=== PATIENT | male | born 1970 | race Caucasian/White ===

== ENCOUNTER 2018-12-13 06:18 | Observation (INO) ==
--- NOTE | 2018-12-02 12:59 | Anesthesiology Consultation ---
Date of Service December 02, 2018 Assessment & Plan (1) Encounter for pre-operative examination: Chart Review Chart Review: Acceptable Risk for Surgery and Patient seen in Pre Admission Testing Teaching & Discussion Pre-Anesthesia Teaching/Discussion Notes: Instructed NPO after midnight before surgery,except medications with 15 cc of water. Medication instructions provided according to the PAT guidelines. History Surgery Operation Date: 12/13/18 07:45 Proposed Procedures p C5-C6 Anterior Cervical Discectomy Fusion, Spinal Cord Monitoring - Palmer Rangel DO Height/Weight Height: 5 ft 3 in Weight: 81.4 kg Allergies Allergy/AdvReac Type Severity Reaction Status Date / Time adhesive Allergy Rash Verified 11/25/18 12:13 Medications Home Medications Medication Instructions Recorded Confirmed Last Taken aspirin [Aspirin Low Dose] 81 mg PO QAM 11/25/18 11/25/18 Unknown gabapentin 100 mg PO TID 11/25/18 12/02/18 Unknown hydrochlorothiazide 12.5 mg PO QAM 11/25/18 11/25/18 Unknown amlodipine [Norvasc] 5 mg PO DAILY 12/02/18 12/02/18 Unknown diphenhydramine-acetaminophen 1 tab PO HS PRN 12/02/18 12/02/18 Unknown [Tylenol PM Extra Strength] doxycycline hyclate 100 mg PO DAILY 12/02/18 12/02/18 Unknown Past Medical History Medical History Chronic pain RUE felt 2/2 cervical stenosis Herniated disc Hx of deep venous thrombosis RLE post-op ankle surgery (2007); AC x 6 months Hypertension Idiopathic urticaria stable on doxycycline; no recent issues Obesity Exercise / Class Metabolic Activity II 4-5 Yardwork/Stairs/Walk up hill Past Family History Family History Aunt Family history of diabetes mellitus Uncle Family history of diabetes mellitus Past Surgical History Surgical History History of ankle surgery right Hx of knee surgery right Hx of thumb surgery ORIF (2/2 trauma/saw accident) Past Anesthesia History No Hx of Anesthesia Complications Sister: "slow to wake"; no known hx of reintubation Son: "slow to wake"; no known hx of reintubation History of PONV No Hx of PONV and No Hx of Motion Sickness Social History Smoking Status: Former smoker Do You Dip or Chew Tobacco: No Smoking End Date: QUIT 35 YEARS AGO Hx Alcohol Use: Yes Alcohol type: beer, wine and hard liquor alcohol intake frequency: a few times a week Hx Substance Use: No Review of Systems Patient denies chest pain, shortness of breath, dyspnea on exertion, reflux, cough, wheezing, palpitations. Physical Exam Vital Signs VITALS BP 142/88 (patient anxious) P 63 TEMP 98.4 SP02 96%RA RESP 18 PHYSICAL Full neck and c-spine range of motion. Full TMJ range of motion. TMD 3.5 finger breaths Mallampati Score 2 Dentition: intact Lungs: clear throughout to auscultation Cardiac: regular rate and rhythm, no murmurs noted Spine: normal Carotid arteries: negative bruit Extremities: no edema Testing Laboratory Results 12/02/18 13:18 12/02/18 13:18 PT 10.6 Seconds (9.0-12.0) 12/02/18 13:18 INR 1.0 (0.9-1.1) 12/02/18 13:18 APTT 25.1 Seconds (21.0-31.0) 12/02/18 13:18 Urine Color Yellow 12/02/18 13:18 Urine Appearance Clear (Clear) 12/02/18 13:18 Urine pH 5.5 (4.5-7.5) 12/02/18 13:18 Ur Specific Alicia 1.023 (1.000-1.030) 12/02/18 13:18 Urine Protein Negative (Negative) 12/02/18 13:18 Urine Glucose (UA) Negative (Negative) 12/02/18 13:18 Urine Ketones Negative (Negative) 12/02/18 13:18 Urine Nitrite Negative (Negative) 12/02/18 13:18 Ur Leukocyte Esterase Negative (Negative) 12/02/18 13:18 Blood Type A Positive 12/02/18 13:18 Antibody Screen NEGATIVE 12/02/18 13:18 Electrocardiogram Date: 12/02/18 NSR at 63bpm. Chest X-Ray Date: 12/02/18 Findings: + NAD
--- NOTE | 2018-12-02 13:17 | PAT Medication Instructions ---
Medication Instructions Date of Service December 02, 2018 Home Medications aspirin [Aspirin Low Dose] 81 mg PO QAM gabapentin 100 mg PO TID hydrochlorothiazide 12.5 mg PO QAM amlodipine [Norvasc] 5 mg PO DAILY diphenhydramine-acetaminophen [Tylenol PM Extra Strength] 1 tab PO HS PRN doxycycline hyclate 100 mg PO DAILY ASK your prescriber and surgeon aspirin [Aspirin Low Dose] 81 mg PO QAM DO NOT take the morning of surgery hydrochlorothiazide 12.5 mg PO QAM Take morning of surgery With a small sip of water, OTHERWISE NOTHING TO EAT OR DRINK AFTER MIDNIGHT: gabapentin 100 mg PO TID amlodipine [Norvasc] 5 mg PO DAILY doxycycline hyclate 100 mg PO DAILY Take evening before surgery gabapentin 100 mg PO TID diphenhydramine-acetaminophen [Tylenol PM Extra Strength] 1 tab PO HS PRN (if needed) Other Notes If you have any questions please call us at [phone] or [phone] or [phone] or [phone]
--- NOTE | 2018-12-02 13:50 | XRay Report ---
XR chest Pre-admission PA/Lat CLINICAL HISTORY: 48 years-old Male presenting with preoperative assessment. TECHNIQUE: PA and lateral views of the chest were obtained. COMPARISON: None. FINDINGS: Cardiomediastinal silhouette normal. Lungs and pleural spaces clear. Osseous structures normal. Upper abdomen normal. IMPRESSION: 1. No acute cardiopulmonary disease. Electronically signed by: Tyler Frazier M.D. 12/02/2018 1:49 PM
[2018-12-02 14:58] LABS: Basophils # (auto) 0.02 K/uL (0-0.2); Basophils % (auto) 0.4 %; Eosinophils # (auto) 0.24 K/uL (0-0.5); Eosinophils % (auto) 4.5 %; Hematocrit (blood only) 43.5 % (42-52); Hemoglobin 15.5 g/dL (14.0-18.0); Immature Granulocytes # (auto) 0.01 K/uL (0.00-0.02); Immature Granulocytes % (auto) 0.2 %; Lymphocytes # (auto) 1.94 K/uL (1.2-3.4); Lymphocytes % (auto) 36.3 %; Mean Corpuscular Hgb Conc 35.6 g/dL (32-36); Mean Corpuscular Volume 87.5 fL (80-100); Mean Platelet Volume 9.6 fL (7.4-10.4); Monocytes # (auto) 0.61 K/uL (0.11-0.59); Monocytes % (auto) 11.4 %; Neutrophils # (auto) 2.52 K/uL (1.4-6.5); Neutrophils % (auto) 47.2 %; Platelet Count 283 K/uL (130-400); RDW Coefficient of Variation 13.5 % (11.5-14.5); Red Blood Count 4.97 M/uL (4.7-6.1); White Blood Count 5.34 K/uL (4.8-10.8)
[2018-12-02 15:04] LABS: Appearance Urine Clear (Clear); Bilirubin Urine Negative (Negative); Blood Urine Negative (Negative); Color Urine Yellow; Glucose Urine UA Negative (Negative); Ketones Urine Negative (Negative); Leukocyte Esterase Urine Negative (Negative); Nitrite Urine Negative (Negative); Protein Urine Negative (Negative); Specific Gravity Urine 1.023 (1.000-1.030); Urobilinogen Urine Negative (Negative); pH Urine 5.5 (4.5-7.5)
[2018-12-02 15:06] LABS: BUN Creatinine Ratio 12.5 (10-20); Calcium 9.2 mg/dl (8.5-10.1); Creatinine Clr Calc Pharmacy 90.6 ml/min; Est GFR (African American) 111.3; Est GFR (Non-African American) 96.1; Potassium 3.9 mmol/L (3.5-5.1)
[2018-12-02 15:10] LABS: Partial Thromboplastin Ratio 0.9; Partial Thromboplastin Time 25.1 Seconds (21.0-31.0); Prothrombin Time 10.6 Seconds (9.0-12.0)
[~2018-12-13 06:18] MED LIST: ACETAMINOPHEN 500 MG TAB PO SCH; CEFAZOLIN 2000MG 2,000 MG/15 ML SYR IV SCH; CeleBREX 200 MG CAP PO SCH; GABAPENTIN 900 MG DOSE PO SCH; LR 15ML/HR IV SCH
[2018-12-13] MEDS ORDERED: MIDAZOLAM HCL 1 MG/ML 2ML VIAL ONE (06:48)
[2018-12-13] MEDS ORDERED: fentaNYL citrate 100 MCG/2 ML VIAL ONE ×3 (06:48→08:19)
[2018-12-13] MEDS ORDERED: PROPOFOL IV EMULSION 10 MG/ML 100 ML VIAL IV ONE (06:54)
[2018-12-13] MEDS ORDERED: BACITRACIN INJ 50,000 UNIT VIAL ONE (06:55)
[2018-12-13] MEDS ORDERED: HYDROmorphone INJ 2 MG/ML SYR/VIAL IV PRN (07:22)
[2018-12-13] MEDS ORDERED: ePHEDrine sulfate 50 MG/ML AMP IV PRN (07:22)
[2018-12-13] MEDS ORDERED: DEXAMETHASONE SOD INJ 4 MG/ML VIAL IV PRN (07:22)
[2018-12-13] MEDS ORDERED: PROMETHAZINE HCL 12.5 MG in SODIUM CHLORIDE 0.9% 50 ML IV PRN (07:22)
[2018-12-13] MEDS ORDERED: ATROPINE SULFATE 0.1 MG/ML 10ML SYR IV PRN (07:22)
[2018-12-13] MEDS ORDERED: fentaNYL citrate 100 MCG/2 ML VIAL IV PRN (07:22)
[2018-12-13] MEDS ORDERED: METOCLOPRAMIDE HCL INJ 5 MG/ML 2 ML VIAL IV PRN (07:22)
[2018-12-13] MEDS ORDERED: ONDANSETRON INJ 2 MG/ML 2 ML VIAL IV PRN ×2 (07:22→11:04)
--- NOTE | 2018-12-13 07:30 | History & Physical Report ---
Date of Service December 13, 2018 Assessment & Plan (1) Cervical stenosis of spinal canal: Anterior cervical discectomy and fusion C5-6 Present on Admission?: Yes History of Present Illness Chief Complaint: Neck and arm pain Primary Care Provider: Shahana Almazan MD This is a 48-year-old male well-known to me that presents with chronic persistent neck and arm pain. After failing extensive course of nonoperative care is here for surgical intervention. Allergies Allergy/AdvReac Type Severity Reaction Status Date / Time adhesive Allergy Rash Verified 11/25/18 12:13 Home Medications Home Medications Medication Instructions Recorded Confirmed Type aspirin [Aspirin Low Dose] 81 mg PO QAM 11/25/18 12/13/18 History gabapentin 100 mg PO TID 11/25/18 12/13/18 History hydrochlorothiazide 12.5 mg PO QAM 11/25/18 12/13/18 History amlodipine [Norvasc] 5 mg PO DAILY 12/02/18 12/13/18 History diphenhydramine-acetaminophen 1 tab PO HS PRN 12/02/18 12/13/18 History [Tylenol PM Extra Strength] doxycycline hyclate 100 mg PO DAILY 12/02/18 12/13/18 History Past Med/Surg History Medical History Chronic pain RUE felt 2/2 cervical stenosis Herniated disc Hx of deep venous thrombosis RLE post-op ankle surgery (2007); AC x 6 months Hypertension Idiopathic urticaria stable on doxycycline; no recent issues Obesity Surgical History History of ankle surgery right Hx of knee surgery right Hx of thumb surgery ORIF (2/2 trauma/saw accident) Family History Aunt Family history of diabetes mellitus Uncle Family history of diabetes mellitus Social History Preferred Language: Lao Communication Ability: Effective Beliefs That Will Affect Care: None Current Living Situation: Family Feels Safe at Home: Yes Safety Concerns: Feels Safe At This Time Smoking Status: Former smoker Do You Dip or Chew Tobacco: No Smoking End Date: QUIT 35 YEARS AGO Second Hand Exposure: No Hx Alcohol Use: Yes Alcohol type: beer, wine and hard liquor Hx Substance Use: No Physical Exam Physical Exam: Patient is alert and oriented neurologically intact. Results & Data Vital Signs (Past 12 Hours) Vital Signs Temp Pulse Resp BP Pulse Ox 12/13/18 06:40 36.6 C 63 18 162/92 H 97
--- NOTE | 2018-12-13 07:30 | History & Physical Bridge Note ---
Date of Service December 13, 2018 History & Physical Bridge Note I have examined the patient, reviewed the History & Physical and in the interval since the performance of the History & Physical I have noted the following changes of clinical significance: no changes noted
[2018-12-13] MEDS ORDERED: HYDROmorphone INJ 2 MG/ML SYR/VIAL ONE (08:01)
[2018-12-13] MEDS ORDERED: NEOSTIGMINE METHYLSULFATE 1 MG/ML 10ML VIAL ONE (08:03)
[2018-12-13] MEDS ORDERED: ONDANSETRON INJ 2 MG/ML 2 ML VIAL ONE (08:03)
[2018-12-13] MEDS ORDERED: ePHEDrine sulfate 50 MG/ML SYR ONE (08:03)
[2018-12-13] MEDS ORDERED: PROPOFOL IV EMULSION 10 MG/ML 20 ML VIAL IV ONE (08:03)
[2018-12-13] MEDS ORDERED: ROCURONIUM BROMIDE 10 MG/ML 5 ML VIAL ONE ×2 (08:03→08:52)
[2018-12-13] MEDS ORDERED: LIDOCAINE HCL 2% 2 ML VIAL/AMP(20MG/ML) INFIL ONE (08:03)
[2018-12-13] MEDS ORDERED: DEXAMETHASONE SOD INJ 4 MG/ML VIAL ONE (08:03)
[2018-12-13] MEDS ORDERED: GLYCOPYRROLATE 0.2 MG/ML VIAL ONE (08:03)
[2018-12-13] MEDS ORDERED: LARYING-O-JET KIT (LTA) ONE ×2 (08:04→08:55)
[2018-12-13] MEDS ORDERED: PHENYLEPHRINE 100MCG/ML 5ML SYR ONE (08:51)
[2018-12-13] MEDS ORDERED: METOCLOPRAMIDE HCL INJ 5 MG/ML 2 ML VIAL ONE (08:51)
[2018-12-13] MEDS ORDERED: FLOSEAL HEMOSTATIC MATRIX 10ML TOP ONE (08:53)
--- NOTE | 2018-12-13 08:57 | Operative Report ---
Post Operative Report Pre & Post Diagnosis Operation Date: 12/13/18 07:45 Pre-Op Diagnosis: Cervical spinal stenosis with herniated nucleus pulposus and radiculopathy Post-Op Diagnosis: Same Procedure Operation Date: 12/13/18 07:45 Actual Procedures #1 anterior cervical discectomy bilateral foraminotomies C5-6. #2 anterior cervical arthrodesis C5-6. #3 placement of cortical allograft 8 mm in height filled with DBM C5-6. #4 application of oscar plate and screws across C5-6. Surgeon Palmer Rangel, DO Agriculture Scientist Ko Quezada Estimated Blood Loss 10 Findings See Below The patient is 5 foot 3 inches tall weighing 81.4 kg with a BMI of 31.8. Patient's body habitus contributed to increased technical difficulty with positioning exposure and perform performing the decompression. This contributed to 25% increase in operative time and surgical intensity. Specimens None Indications This is a 48-year-old male that presents with the above-mentioned diagnosis after failing extensive course of nonoperative care like to undergo the above- mentioned procedure. Description of Procedure Patient was met with identified and informed consent obtained. Patient was then taken to the operative suite underwent intubation placed in supine position Zafar table the head Germain head up operator helper. All bony prominences well-padded eyes inspected to ensure no external pressure placed upon the peer at this point the anterior cervical spine was prepped and draped in the normal sterile fashion. The assistance of fluoroscopy identified the C5-6 disc space and a transverse incision was placed on the right anterior aspect of the cervical spine overlying fusion. Sharp dissection with the assistance of bipolar electrocautery was performed down to and exposing the anterior cervical spine for C5-C6. I verified my position with fluoroscopy. And then performed a complete discectomy at C5-6 up to the uncovertebral joints bilaterally. [place] distracting pins were utilized to assist in visualization. I removed all posterior annular fibers longitudinal ligament bilateral foraminotomies performed removing the disc fragment. Endplates were then burred to subcortical being bone and an 8 mm cortical allograft filled with DBM tapped in position. Distraction apparatus was removed and a oscar plate and screws applied with the assistance of fluoroscopy. Incision was then copiously irrigated explored to ensure no damage to surrounding structures remaining bleeding. 10 round DASHAWN drain inserted. Incision was then closed with 2 Vicryl in the fashion of 4 Monocryl for final skin closure. Steri-Strip sterile dressings placed. Patient will continue to PACU stable condition. Please note Ko Quezada present throughout the entire procedure involved the patient positioning complex portions of the surgery and final skin closure. Lastly spinal cord monitoring was utilized that procedure no changes noted. I attest to the content of the Intraoperative Record and any orders documented therein. Any exceptions are noted below.
--- NOTE | 2018-12-13 10:35 | Anesthesiology Progress Note ---
Date of Service December 13, 2018 Anesthesia Post Procedure Vital Signs Vital Signs: Temp Pulse Pulse Resp BP Pulse Ox 12/13/18 10:25 36.4 C L 78 16 158/82 H 99 12/13/18 10:15 82 16 163/94 H 97 12/13/18 10:05 81 16 158/87 H 98 12/13/18 09:55 79 16 159/85 H 98 12/13/18 09:45 80 16 153/97 H 98 12/13/18 09:35 77 16 147/91 H 100 12/13/18 09:25 77 16 162/85 H 100 12/13/18 09:15 36.0 C L 88 16 160/99 H 99 12/13/18 06:40 36.6 C 63 18 162/92 H 97 Transfer of Care Handoff Completed per policy Notes Mental Status: alert / awake / arousable and participated in evaluation Patient Amnestic to Procedure: Yes Nausea / Vomiting: adequately controlled Pain: adequately controlled Airway Patency, RR, SpO2: stable & adequate BP & HR: stable & adequate Hydration State: stable & adequate Anesthetic Complications: no major complications apparent
[2018-12-13] MEDS ORDERED: NON-FORMULARY MEDICATION (Diphenhydramine-Acetaminophen [Tylenol Pm Extra Strength] 1 TAB) PO PRN (11:04)
[2018-12-13] MEDS ORDERED: MAGNESIUM HYDROXIDE SUSP 30 ML UDC PO PRN (11:04)
[2018-12-13] MEDS ORDERED: DO NOT ADMINISTER PNEUMOCOCCAL VACCINE PRN (11:04)
[2018-12-13] MEDS ORDERED: DOXYCYCLINE HYCLATE 100 MG CAP PO SCH (11:04)
[2018-12-13] MEDS ORDERED: DiphenhydrAMINE HCL 50 MG/ML VIAL IV PRN (11:04)
[2018-12-13] MEDS ORDERED: hydroCHLOROthiazide 25 MG TAB PO SCH (11:04)
[2018-12-13] MEDS ORDERED: ASPIRIN 81 MG ECTAB PO SCH (11:04)
[2018-12-13] MEDS ORDERED: ACETAMINOPHEN 1,000 MG/100 ML VIAL IV PRN (11:04)
[2018-12-13] MEDS ORDERED: LORazepam 0.5 MG/1 ML VIAL IV PRN (11:04)
[2018-12-13] MEDS ORDERED: DO NOT ADMINISTER FLU VACCINE PRN (11:04)
[2018-12-13] MEDS ORDERED: RACEPINEPHRINE 2.25% NEBU SOLN 0.5 ML VIAL INH PRN (11:04)
[2018-12-13] MEDS ORDERED: HYDROmorphone INJ 0.5 MG/0.5 ML SYR IV PRN (11:04)
[2018-12-13] MEDS ORDERED: AMLODIPINE BESYLATE 5 MG TAB PO SCH (11:04)
[2018-12-13] MEDS ORDERED: DEXAMETHASONE SOD PHOSPHATE 8 MG in SYRINGE 0 ML IV PRN (11:04)
[2018-12-13] MEDS ORDERED: NALOXONE HCL 0.4 MG/1 ML VIAL/CARP IV PRN (11:04)
[2018-12-13] MEDS ORDERED: OXYCODONE HCL IR 5 MG TAB (IMMEDIATE RELEASE) PO PRN (11:04)
[2018-12-13] MEDS ORDERED: LORazepam 0.5 MG TAB PO PRN (11:04)
[2018-12-13] MEDS ORDERED: ACETAMINOPHEN 500 MG TAB PO PRN (11:21)
[2018-12-13] MEDS ORDERED: SCOPOLAMINE 1.5 MG TDSY TD SCH (11:30)
--- NOTE | 2018-12-13 12:18 | Fluoroscopy Report ---
INTRAOPERATIVE RADIOGRAPHS CLINICAL HISTORY: C5-C6 spinal fusion. Fluoroscopy time: 10 seconds. FINDINGS: 2 spot fluoroscopic views of the cervical spine are presented. There has been discectomy at C5-C6 with anterior fusion at this level. The orthopedic hardware appears intact. An endotracheal tu be is noted. IMPRESSION: Intraoperative images from C5 -C6 spinal fusion as above. Electronically signed by: Sebastian Zacarias M.D. 12/13/2018 12:17 PM
[2018-12-13] MEDS: LACTATED RINGER'S 1,000 ML IV SCH ×2 (12:29→23:36)
[2018-12-13] MEDS: GABAPENTIN 100 MG CAP PO SCH ×3 (12:53→21:23)
[2018-12-13] MEDS: DOCUSATE SODIUM 100 MG CAP PO SCH ×2 (12:54→21:23)
[2018-12-13] MEDS: CEFAZOLIN 2000MG 2,000 MG/15 ML SYR IV SCH (16:56)
[2018-12-13] MEDS: CHECK SCOPOLAMINE PATCH PLACEMENT SCH ×2 (16:56→23:36)
[2018-12-14] MEDS: CEFAZOLIN 2000MG 2,000 MG/15 ML SYR IV SCH (00:23)
--- NOTE | 2018-12-14 08:54 | Discharge Summary ---
Date of Service December 14, 2018 Admission HPI Per Admitting Provider This is a 48-year-old male well-known to me that presents with chronic persistent neck and arm pain. After failing extensive course of nonoperative care is here for surgical intervention. Discharge Data Procedures Performed Operation Date: 12/13/18 07:45 Actual Procedures p C5-C6 Anterior Cervical Discectomy Fusion with Spinal Cord Monitoring(Not Applicable) - Palmer Rangel DO Hospital Course (1) Cervical stenosis of spinal canal: Patient is a 48-year-old male with history physical examination and radiographic images consistent with a C5-6 disc herniation. On 12/13/2018 he had undergone anterior cervical discectomy and fusion at this level. This was performed by Dr. Rangel under general anesthesia. Left the operating room with the DASHAWN drain in place. He was transferred to PACU in stable condition and transferred to the orthopedic floor. He is done well postoperatively with significant decrease in pain in the right arm. He is swallowing without difficulty or in his dressings clean dry intact and this point has met discharge criteria. He is going to be discharged home. He is to keep his cervical collar in place when he is up and walking. If he sitting quietly in chair he can remove it he can also remove for showers. He should keep his dressing in place as long as there is drainage. Once the drainage is stopped he may begin showering. We will see him back in the office in approximately 2 weeks which time AP lateral cervical spine films will be obtained. He has any increased drainage pain or swelling he will contact our office.
[2018-12-15] MEDS ORDERED: BISACODYL 5 MG TABEC PO PRN (09:00)
== END 2018-12-14 09:00 | disposition home or self-care (01) ==
LOC: 3E 06:18 → ASU 06:18
DX: M48.02 Spinal stenosis, cervical region; Z79.899 Other long term (current) drug therapy; Z68.31 Body mass index [BMI] 31.0-31.9, adult; Z79.82 Long term (current) use of aspirin; Z87.891 Personal history of nicotine dependence; I10 Essential (primary) hypertension; Z86.718 Personal history of other venous thrombosis and embolism; M50.122 Cervical disc disorder at C5-C6 level with radiculopathy; E66.9 Obesity, unspecified